=== PATIENT | male | born 1995 | race Two or more races ===

== ENCOUNTER 2020-01-20 12:40 | Emergency (ER) | payer OTHER ==
[~2020-01-20] VITALS: Ht 165.1 cm; Wt 89.1 kg
--- NOTE | 2020-01-20 13:14 | REP ---
INDICATION: TRAUMA DEFORMITY COMPARISON: None. TECHNIQUE: AP, lateral, bilateral oblique views right hand. FINDINGS: Nondisplaced burst fracture involving the terminal tuft 3rd distal phalanx with overlying soft tissue swelling. No foreign body. Remainder of the examination appears normal. IMPRESSION: Nondisplaced burst fracture 3rd digit terminal tuft. <Electronically signed by Morales Carlos > 01/20/20 [id number]
[2020-01-20] MEDS ORDERED: KEFL500C17 PO (14:03)
[2020-01-20 14:23] VITALS: BP 140/89
== END 2020-01-20 14:34 | disposition home or self-care (01) ==
LOC: M ED 12:40
DX: S62.662B Nondisplaced fracture of distal phalanx of right middle finger, initial encounter for open fracture (principal); S60.131A Contusion of right middle finger with damage to nail, initial encounter; S60.141A Contusion of right ring finger with damage to nail, initial encounter; X58.XXXA Exposure to other specified factors, initial encounter; Y92.89 Other specified places as the place of occurrence of the external cause; Y93.9 Activity, unspecified; Y99.1 Military activity; F17.200 Nicotine dependence, unspecified, uncomplicated; Z91.018 Allergy to other foods